=== PATIENT | male | born 1975 | race Caucasian/White ===

== ENCOUNTER 2022-08-18 09:39 | Emergency (ER) | payer BC ==
[2022-08-18] MEDS ORDERED: Sodium Chloride 0.9% 2.5 ML Syringe FLUSH PRN (09:55)
[2022-08-18] MEDS ORDERED: Sodium Chloride 0.9% 10 ML Syringe FLUSH PRN (09:55)
[2022-08-18 10:04] LABS: BASOPHILS PERCENT AUTO 0.4 % (0.0-1.5); EOSINOPHILS ABSOLUTE AUTO 0.1 K/uL (0.0-0.7); EOSINOPHILS PERCENT AUTO 1.7 % (0.0-7.0); HEMATOCRIT 41.8 % (38.0-50.0); HEMOGLOBIN 14.1 g/dL (13.0-17.0); LYMPHOCYTES ABSOLUTE AUTO 2.1 K/uL (0.6-2.4); LYMPHOCYTES PERCENT AUTO 38.2 % (16.0-40.0); MEAN CORPUSCULAR HEMOGLOBIN 29.4 pg (27.0-32.0); MEAN CORPUSCULAR HGB CONC 33.7 g/dL (31.0-37.0); MEAN CORPUSCULAR VOLUME 87.3 fL (80.0-98.0); MONOCYTES ABSOLUTE AUTO 0.4 K/uL (0.0-0.8); MONOCYTES PERCENT AUTO 7.2 % (0.0-15.0); NEUTROPHILS ABSOLUTE AUTO 2.9 K/uL (1.4-5.7); NEUTROPHILS PERCENT AUTO 52.5 % (48.0-80.0); NRBC ABSOLUTE 0 K/uL; PLATELET COUNT,PLT 250 K/uL (150-400); RED BLOOD CELL COUNT 4.79 M/uL (4.50-5.90); WHITE BLOOD CELL COUNT,WBC 5.44 K/uL (4.0-11.0)
[2022-08-18 10:23] LABS: ALBUMIN 3.9 g/dL (3.4-5.0); BILIRUBIN TOTAL 0.4 mg/dL (0.2-1.0); CALCIUM 8.6 mg/dL (8.5-10.1); CARBON DIOXIDE,CO2 24.1 mmol/L (21.0-32.0); CREATININE 1.1 mg/dL (0.8-1.3); EST CRCL DRUG DOSING (CG) 94.83 mL/min; POTASSIUM,K 3.5 mmol/L (3.5-5.1); PROTEIN TOTAL,TP 7.8 g/dL (6.4-8.2)
[2022-08-18] MEDS ORDERED: Aspirin 81 MG Tab.Chew PO ONE (13:35)
== END 2022-08-18 13:39 | disposition home or self-care (01) ==
LOC: MW.ED 09:39
DX: R07.89 Other chest pain (principal); I11.0 Hypertensive heart disease with heart failure; I50.30 Unspecified diastolic (congestive) heart failure; R53.81 Other malaise; Z79.82 Long term (current) use of aspirin; Z79.899 Other long term (current) drug therapy
CPT/HCPCS: 36415; 71045; 80053; 82947; 83605; 83690; 83880; 84484; 85025; 85379; 93005; 99285; J3490

== ENCOUNTER 2022-11-02 16:25 | Emergency (ER) | payer BC ==
[2022-11-02 17:05] LABS: BASOPHILS PERCENT AUTO 0.6 % (0.0-1.5); EOSINOPHILS ABSOLUTE AUTO 0.1 K/uL (0.0-0.7); EOSINOPHILS PERCENT AUTO 1.7 % (0.0-7.0); HEMATOCRIT 38.8 % (38.0-50.0); HEMOGLOBIN 13.1 g/dL (13.0-17.0); LYMPHOCYTES ABSOLUTE AUTO 1.4 K/uL (0.6-2.4); LYMPHOCYTES PERCENT AUTO 25.9 % (16.0-40.0); MEAN CORPUSCULAR HEMOGLOBIN 29.3 pg (27.0-32.0); MEAN CORPUSCULAR HGB CONC 33.8 g/dL (31.0-37.0); MEAN CORPUSCULAR VOLUME 86.8 fL (80.0-98.0); MONOCYTES ABSOLUTE AUTO 0.4 K/uL (0.0-0.8); MONOCYTES PERCENT AUTO 6.7 % (0.0-15.0); NEUTROPHILS ABSOLUTE AUTO 3.4 K/uL (1.4-5.7); NEUTROPHILS PERCENT AUTO 65.1 % (48.0-80.0); NRBC ABSOLUTE 0 K/uL; PLATELET COUNT,PLT 256 K/uL (150-400); RED BLOOD CELL COUNT 4.47 M/uL (4.50-5.90); WHITE BLOOD CELL COUNT,WBC 5.22 K/uL (4.0-11.0)
[2022-11-02 17:25] LABS: A/G RATIO 1.1 (0.9-1.6); ALBUMIN 3.9 g/dL (3.4-5.0); BILIRUBIN TOTAL 0.3 mg/dL (0.2-1.0); CALCIUM 8.4 mg/dL (8.5-10.1); CARBON DIOXIDE,CO2 23.3 mmol/L (21.0-32.0); CREATININE 1.1 mg/dL (0.8-1.3); EST CRCL DRUG DOSING (CG) 94.83 mL/min; POTASSIUM,K 3.6 mmol/L (3.5-5.1); PROTEIN TOTAL,TP 7.4 g/dL (6.4-8.2)
== END 2022-11-02 19:35 | disposition home or self-care (01) ==
LOC: MW.ED 16:25
DX: R07.89 Other chest pain (principal); I11.0 Hypertensive heart disease with heart failure; I50.9 Heart failure, unspecified; Z79.82 Long term (current) use of aspirin; Z79.899 Other long term (current) drug therapy
CPT/HCPCS: 36415; 71045; 71045-26; 80053; 83880; 84443; 84484; 85025; 85379; 93005; 93010; 99282; 99285

== ENCOUNTER 2022-11-29 15:07 | Emergency (ER) | payer BC ==
[2022-11-29 15:33] LABS: BASOPHILS PERCENT AUTO 0.7 % (0.0-1.5); EOSINOPHILS ABSOLUTE AUTO 0.1 K/uL (0.0-0.7); EOSINOPHILS PERCENT AUTO 2.5 % (0.0-7.0); HEMATOCRIT 41.2 % (38.0-50.0); HEMOGLOBIN 13.8 g/dL (13.0-17.0); LYMPHOCYTES ABSOLUTE AUTO 1.7 K/uL (0.6-2.4); LYMPHOCYTES PERCENT AUTO 39.1 % (16.0-40.0); MEAN CORPUSCULAR HEMOGLOBIN 29.2 pg (27.0-32.0); MEAN CORPUSCULAR HGB CONC 33.5 g/dL (31.0-37.0); MEAN CORPUSCULAR VOLUME 87.1 fL (80.0-98.0); MONOCYTES ABSOLUTE AUTO 0.3 K/uL (0.0-0.8); MONOCYTES PERCENT AUTO 6.9 % (0.0-15.0); NEUTROPHILS ABSOLUTE AUTO 2.2 K/uL (1.4-5.7); NEUTROPHILS PERCENT AUTO 50.8 % (48.0-80.0); NRBC ABSOLUTE 0 K/uL; PLATELET COUNT,PLT 242 K/uL (150-400); RED BLOOD CELL COUNT 4.73 M/uL (4.50-5.90); WHITE BLOOD CELL COUNT,WBC 4.32 K/uL (4.0-11.0)
[2022-11-29 15:52] LABS: ALBUMIN 3.8 g/dL (3.4-5.0); BILIRUBIN TOTAL 0.3 mg/dL (0.2-1.0); CALCIUM 7.9 mg/dL (8.5-10.1); CARBON DIOXIDE,CO2 26.2 mmol/L (21.0-32.0); CREATININE 1.1 mg/dL (0.8-1.3); EST CRCL DRUG DOSING (CG) 91.12 mL/min; POTASSIUM,K 3.4 mmol/L (3.5-5.1); PROTEIN TOTAL,TP 7.6 g/dL (6.4-8.2)
[2022-11-29] MEDS ORDERED: Sodium Chloride 0.9% 1,000 ML IV ONE (17:04)
[2022-11-29] MEDS ORDERED: Potassium Chloride 10% 20 MEQ/15 ML Soln 15 ML UD Cup PO ONE (17:43)
== END 2022-11-29 19:29 | disposition home or self-care (01) ==
LOC: MW.ED 15:07
DX: L55.9 Sunburn, unspecified (principal); I11.0 Hypertensive heart disease with heart failure; I50.9 Heart failure, unspecified; Z79.899 Other long term (current) drug therapy
CPT/HCPCS: 36415; 80053; 83735; 84484; 85025; 93005; 99284; A9270; J7030; 93010; 99283

== ENCOUNTER 2023-04-07 16:00 | Emergency (ER) | payer BC, OTHER ==
[2023-04-07 18:41] LABS: BILIRUBIN,URINE NEGATIVE (NEGATIVE); COLOR,URINE YELLOW; GLUCOSE,URINE NEGATIVE (NEGATIVE); KETONES,URINE NEGATIVE (NEGATIVE); LEUKOCYTE ESTERASE,URINE NEGATIVE (NEGATIVE); NITRITE,URINE POSITIVE (NEGATIVE); OCCULT BLOOD,URINE NEGATIVE (NEGATIVE); PROTEIN,URINE NEGATIVE (NEGATIVE); UROBILINOGEN,URINE 0.2 EU/dL (<2.0)
[2023-04-07 18:55] LABS: APPEARANCE,URINE SLT CLOUDY
[2023-04-07 19:18] LABS: BACTERIA,URINE 1+ (NEGATIVE); EPITHELIAL CELLS,URINE RARE (NONE-FEW); RBC,URINE 0-2 (0-2/HPF); WBC,URINE 0-1 (0-5/HPF)
== END 2023-04-07 19:10 | disposition home or self-care (01) ==
LOC: MW.ED 16:00
DX: N45.1 Epididymitis (principal); I11.0 Hypertensive heart disease with heart failure; I50.9 Heart failure, unspecified; Z79.82 Long term (current) use of aspirin; Z79.899 Other long term (current) drug therapy
CPT/HCPCS: 76870; 76870-26; 81001; 87086; 93976; 93976-26; 99283; 99284

== ENCOUNTER 2023-06-22 20:34 | Emergency (ER) | payer BC, OTHER ==
[2023-06-22] MEDS: Sodium Chloride 0.9% 1,000 ML IV ONE (21:44)
[2023-06-22] MEDS: Ketorolac 30 MG/ML SDV IVPUSH ONE (21:44)
[2023-06-22] MEDS: Ondansetron 4 MG/2 ML SDV IVPUSH ONE (21:44)
[2023-06-22 21:56] LABS: BASOPHILS ABSOLUTE AUTO 0.05 K/uL (0.00-0.20); BASOPHILS PERCENT AUTO 0.8 % (0.0-1.0); EOSINOPHILS ABSOLUTE AUTO 0.14 K/uL (0.00-0.45); EOSINOPHILS PERCENT AUTO 2.1 % (0.0-6.0); HEMATOCRIT 39.8 % (42.0-52.0); HEMOGLOBIN 13.5 g/dL (14.0-18.0); IMMATURE GRAN ABSOLUTE AUTO 0.01 K/uL (0.00-0.05); IMMATURE GRAN PERCENT AUTO 0.2 % (0.0-0.4); LYMPHOCYTES ABSOLUTE AUTO 2.28 K/uL (1.00-4.80); LYMPHOCYTES PERCENT AUTO 34.4 % (24.0-44.0); MEAN CORPUSCULAR HEMOGLOBIN 29.3 pg (28.0-32.0); MEAN CORPUSCULAR HGB CONC 33.9 g/dL (32.0-36.0); MEAN CORPUSCULAR VOLUME 86.5 fL (83.0-99.0); MEAN PLATELET VOLUME 9.9 fL (9.4-12.4); MONOCYTES ABSOLUTE AUTO 0.46 K/uL (0.00-0.80); MONOCYTES PERCENT AUTO 6.9 % (0.0-8.0); NEUTROPHILS ABSOLUTE AUTO 3.69 K/uL (1.80-7.70); NEUTROPHILS PERCENT AUTO 55.6 % (41.0-71.0); PLATELET COUNT,PLT 250 K/uL (150-400); WHITE BLOOD CELL COUNT,WBC 6.63 K/uL (3.9-11.3)
[2023-06-22 22:28] LABS: ALBUMIN 3.9 g/dL (3.4-5.0); BILIRUBIN TOTAL 0.4 mg/dL (0.2-1.0); CALCIUM 9.1 mg/dL (8.5-10.1); CARBON DIOXIDE,CO2 21.9 mmol/L (21.0-32.0); EST CRCL DRUG DOSING (CG) 103.2 mL/min; POTASSIUM,K 3.5 mmol/L (3.5-5.1); PROTEIN TOTAL,TP 7.7 g/dL (6.4-8.2)
== END 2023-06-22 23:01 | disposition home or self-care (01) ==
LOC: MW.ED 20:34
DX: R51.9 Headache, unspecified (principal); I11.0 Hypertensive heart disease with heart failure; I50.9 Heart failure, unspecified; Z75.8 Other problems related to medical facilities and other health care; Z79.82 Long term (current) use of aspirin; Z79.899 Other long term (current) drug therapy
CPT/HCPCS: 36415; 80053; 85025; 93005; 96361; 96374; 96375; 99284; J1885; J2405; J7030

== ENCOUNTER 2023-08-15 15:00 | Emergency (ER) | payer BC ==
[2023-08-15 15:17] LABS: BASOPHILS ABSOLUTE AUTO 0.03 K/uL (0.00-0.20); BASOPHILS PERCENT AUTO 0.6 % (0.0-1.0); EOSINOPHILS ABSOLUTE AUTO 0.05 K/uL (0.00-0.45); HEMATOCRIT 40.6 % (42.0-52.0); HEMOGLOBIN 13.8 g/dL (14.0-18.0); IMMATURE GRAN ABSOLUTE AUTO 0.01 K/uL (0.00-0.05); IMMATURE GRAN PERCENT AUTO 0.2 % (0.0-0.4); LYMPHOCYTES ABSOLUTE AUTO 1.25 K/uL (1.00-4.80); LYMPHOCYTES PERCENT AUTO 25.4 % (24.0-44.0); MEAN CORPUSCULAR VOLUME 88.3 fL (83.0-99.0); MEAN PLATELET VOLUME 9.9 fL (9.4-12.4); MONOCYTES ABSOLUTE AUTO 0.35 K/uL (0.00-0.80); MONOCYTES PERCENT AUTO 7.1 % (0.0-8.0); NEUTROPHILS ABSOLUTE AUTO 3.23 K/uL (1.80-7.70); NEUTROPHILS PERCENT AUTO 65.7 % (41.0-71.0); PLATELET COUNT,PLT 280 K/uL (150-400); WHITE BLOOD CELL COUNT,WBC 4.92 K/uL (3.9-11.3)
[2023-08-15] MEDS: diphenhydrAMINE 50 MG/ML SDV IVPUSH ONE (15:18)
[2023-08-15] MEDS: Sodium Chloride 0.9% 1,000 ML IV ONE (15:18)
[2023-08-15] MEDS: Famotidine 20 MG/2 ML SDV IVPUSH ONE (15:18)
[2023-08-15 15:45] LABS: A/G RATIO 0.9 (0.9-1.6); ALANINE AMINOTRANSFERASE,ALT 35 IU/L (14-63); ALBUMIN 3.6 g/dL (3.4-5.0); ALKALINE PHOSPHATASE 90 U/L (46-116); ASPARTATE AMNIOTRANSFERASE,AST 17 IU/L (15-37); BILIRUBIN TOTAL 0.3 mg/dL (0.2-1.0); BLOOD UREA NITROGEN,BUN 7 mg/dL (7.0-18.0); CALCIUM 8.5 mg/dL (8.5-10.1); CARBON DIOXIDE,CO2 27.7 mmol/L (21.0-32.0); CHLORIDE,CL 107 mmol/L (98-107); GLUCOSE RANDOM 86 mg/dL (74-106); INR 1.02 (0.86-1.11); LIPASE 62 U/L (16-77); PROTEIN TOTAL,TP 7.6 g/dL (6.4-8.2); SODIUM,NA 142 mmol/L (136-148)
[2023-08-15 15:48] LABS: ESTIMATED GFR 93 mL/min (>60)
== END 2023-08-15 18:28 | disposition home or self-care (01) ==
LOC: MW.ED 15:00
DX: T59.4X1A Toxic effect of chlorine gas, accidental (unintentional), initial encounter (principal); I11.0 Hypertensive heart disease with heart failure; I50.9 Heart failure, unspecified; Z79.02 Long term (current) use of antithrombotics/antiplatelets; Z79.899 Other long term (current) drug therapy; Z75.8 Other problems related to medical facilities and other health care
CPT/HCPCS: 36415; 71045; 80053; 82947; 83690; 84484; 85025; 85610; 85730; 93005; 96361; 96374; 96375; 99284; J1200; J3490; J7030; 93010

== ENCOUNTER 2023-11-02 14:58 | Emergency (ER) | payer BC, OTHER ==
[2023-11-02 16:04] LABS: BASOPHILS ABSOLUTE AUTO 0.04 K/uL (0.00-0.20); BASOPHILS PERCENT AUTO 0.8 % (0.0-1.0); EOSINOPHILS ABSOLUTE AUTO 0.13 K/uL (0.00-0.45); EOSINOPHILS PERCENT AUTO 2.5 % (0.0-6.0); HEMATOCRIT 38.7 % (42.0-52.0); HEMOGLOBIN 13.6 g/dL (14.0-18.0); IMMATURE GRAN ABSOLUTE AUTO 0.02 K/uL (0.00-0.05); IMMATURE GRAN PERCENT AUTO 0.4 % (0.0-0.4); LYMPHOCYTES ABSOLUTE AUTO 1.74 K/uL (1.00-4.80); LYMPHOCYTES PERCENT AUTO 33.7 % (24.0-44.0); MEAN CORPUSCULAR HGB CONC 35.1 g/dL (32.0-36.0); MEAN CORPUSCULAR VOLUME 85.2 fL (83.0-99.0); MEAN PLATELET VOLUME 9.6 fL (9.4-12.4); MONOCYTES ABSOLUTE AUTO 0.27 K/uL (0.00-0.80); MONOCYTES PERCENT AUTO 5.2 % (0.0-8.0); NEUTROPHILS ABSOLUTE AUTO 2.97 K/uL (1.80-7.70); NEUTROPHILS PERCENT AUTO 57.4 % (41.0-71.0); PLATELET COUNT,PLT 254 K/uL (150-400); RED BLOOD CELL COUNT 4.54 M/uL (4.52-5.90); WHITE BLOOD CELL COUNT,WBC 5.17 K/uL (3.9-11.3)
[2023-11-02 16:59] LABS: A/G RATIO 1.1 (0.9-1.6); ALANINE AMINOTRANSFERASE,ALT 31 IU/L (14-63); ALBUMIN 4.1 g/dL (3.4-5.0); ALKALINE PHOSPHATASE 86 U/L (46-116); ASPARTATE AMNIOTRANSFERASE,AST 17 IU/L (15-37); BILIRUBIN TOTAL 0.5 mg/dL (0.2-1.0); BLOOD UREA NITROGEN,BUN 13 mg/dL (7.0-18.0); CALCIUM 8.9 mg/dL (8.5-10.1); CARBON DIOXIDE,CO2 26.3 mmol/L (21.0-32.0); CHLORIDE,CL 102 mmol/L (98-107); CREATININE 0.9 mg/dL (0.8-1.3); EST CRCL DRUG DOSING (CG) 114.67 mL/min; GLUCOSE RANDOM 90 mg/dL (74-106); LIPASE 50 U/L (16-77); POTASSIUM,K 3.6 mmol/L (3.5-5.1); SODIUM,NA 138 mmol/L (136-148)
[2023-11-02 17:06] LABS: ESTIMATED GFR 106 mL/min (>60)
== END 2023-11-02 17:33 | disposition home or self-care (01) ==
LOC: MW.ED 14:58
DX: R11.0 Nausea (principal); I11.0 Hypertensive heart disease with heart failure; I50.9 Heart failure, unspecified; Z79.82 Long term (current) use of aspirin; Z79.899 Other long term (current) drug therapy; Z75.8 Other problems related to medical facilities and other health care
CPT/HCPCS: 36415; 80053; 83690; 84484; 85025; 99284

== ENCOUNTER 2023-11-25 02:50 | Observation (INO) | payer BC, OTHER ==
[2023-11-25] MEDS ORDERED: Sodium Chloride 0.9% 2.5 ML Syringe FLUSH PRN (03:19)
[2023-11-25] MEDS ORDERED: Sodium Chloride 0.9% 10 ML Syringe FLUSH PRN (03:19)
[2023-11-25 03:26] LABS: BASOPHILS ABSOLUTE AUTO 0.05 K/uL (0.00-0.20); EOSINOPHILS ABSOLUTE AUTO 0.11 K/uL (0.00-0.45); EOSINOPHILS PERCENT AUTO 2.3 % (0.0-6.0); HEMATOCRIT 41.2 % (42.0-52.0); HEMOGLOBIN 13.9 g/dL (14.0-18.0); IMMATURE GRAN ABSOLUTE AUTO 0.01 K/uL (0.00-0.05); IMMATURE GRAN PERCENT AUTO 0.2 % (0.0-0.4); LYMPHOCYTES ABSOLUTE AUTO 1.83 K/uL (1.00-4.80); LYMPHOCYTES PERCENT AUTO 37.7 % (24.0-44.0); MEAN CORPUSCULAR HEMOGLOBIN 29.1 pg (28.0-32.0); MEAN CORPUSCULAR HGB CONC 33.7 g/dL (32.0-36.0); MEAN CORPUSCULAR VOLUME 86.2 fL (83.0-99.0); MEAN PLATELET VOLUME 9.8 fL (9.4-12.4); MONOCYTES ABSOLUTE AUTO 0.26 K/uL (0.00-0.80); MONOCYTES PERCENT AUTO 5.3 % (0.0-8.0); NEUTROPHILS PERCENT AUTO 53.5 % (41.0-71.0); PLATELET COUNT,PLT 266 K/uL (150-400); RED BLOOD CELL COUNT 4.78 M/uL (4.52-5.90); WHITE BLOOD CELL COUNT,WBC 4.86 K/uL (3.9-11.3)
[2023-11-25 03:43] LABS: A/G RATIO 1.1 (0.9-1.6); BILIRUBIN TOTAL 0.4 mg/dL (0.2-1.0); CALCIUM 8.8 mg/dL (8.5-10.1); CARBON DIOXIDE,CO2 23.8 mmol/L (21.0-32.0); CREATININE 0.8 mg/dL (0.8-1.3); EST CRCL DRUG DOSING (CG) 127.62 mL/min; MAGNESIUM 2.1 mg/dL (1.8-2.4); PROTEIN TOTAL,TP 7.8 g/dL (6.4-8.2)
[2023-11-25] MEDS: Acetaminophen 325 MG Tab PO PRN (06:05)
[2023-11-25] MEDS: Ibuprofen 400 MG Tab PO ONE (09:35)
[2023-11-26 06:59] LABS: BASOPHILS ABSOLUTE AUTO 0.04 K/uL (0.00-0.20); BASOPHILS PERCENT AUTO 0.8 % (0.0-1.0); EOSINOPHILS ABSOLUTE AUTO 0.13 K/uL (0.00-0.45); EOSINOPHILS PERCENT AUTO 2.7 % (0.0-6.0); HEMATOCRIT 36.8 % (42.0-52.0); HEMOGLOBIN 12.4 g/dL (14.0-18.0); IMMATURE GRAN ABSOLUTE AUTO 0.01 K/uL (0.00-0.05); IMMATURE GRAN PERCENT AUTO 0.2 % (0.0-0.4); LYMPHOCYTES PERCENT AUTO 37.7 % (24.0-44.0); MEAN CORPUSCULAR HEMOGLOBIN 29.6 pg (28.0-32.0); MEAN CORPUSCULAR HGB CONC 33.7 g/dL (32.0-36.0); MEAN CORPUSCULAR VOLUME 87.8 fL (83.0-99.0); MEAN PLATELET VOLUME 9.9 fL (9.4-12.4); MONOCYTES ABSOLUTE AUTO 0.32 K/uL (0.00-0.80); MONOCYTES PERCENT AUTO 6.7 % (0.0-8.0); NEUTROPHILS ABSOLUTE AUTO 2.48 K/uL (1.80-7.70); NEUTROPHILS PERCENT AUTO 51.9 % (41.0-71.0); PLATELET COUNT,PLT 211 K/uL (150-400); RED BLOOD CELL COUNT 4.19 M/uL (4.52-5.90); WHITE BLOOD CELL COUNT,WBC 4.78 K/uL (3.9-11.3)
[2023-11-26 07:20] LABS: ALBUMIN 3.3 g/dL (3.4-5.0); BILIRUBIN TOTAL 0.4 mg/dL (0.2-1.0); CALCIUM 8.3 mg/dL (8.5-10.1); CREATININE 1.1 mg/dL (0.8-1.3); EST CRCL DRUG DOSING (CG) 95.48 mL/min; POTASSIUM,K 3.7 mmol/L (3.5-5.1); PROTEIN TOTAL,TP 6.7 g/dL (6.4-8.2)
[2023-11-26] MEDS: amLODIPine 5 MG Tab PO SCH (09:03)
[2023-11-26] MEDS: Losartan 50 MG Tab PO SCH (09:04)
[2023-11-26] MEDS: Carvedilol 6.25 MG Tab PO SCH (09:05)
== END 2023-11-26 16:15 | disposition home or self-care (01) ==
LOC: MW.ED 02:50 → MW.MS 04:47
PROVIDERS: ADMIT Family Medicine; ATTEND Family Medicine
DX: R55 Syncope and collapse (principal); I11.0 Hypertensive heart disease with heart failure; I50.9 Heart failure, unspecified; F41.9 Anxiety disorder, unspecified; Z79.82 Long term (current) use of aspirin; Z79.899 Other long term (current) drug therapy
CPT/HCPCS: 36415; 70450; 71046; 80053; 80307; 83735; 84484; 85025; 93005; 93306; 93880; 99285; A9270; G0378

== ENCOUNTER 2023-12-03 21:45 | Emergency (ER) | payer BC, OTHER | END 2023-12-03 22:23 | disposition home or self-care (01) | LOC: MW.ED 21:45 | DX: R23.3 Spontaneous ecchymoses (principal); I10 Essential (primary) hypertension; Z79.899 Other long term (current) drug therapy; Z79.82 Long term (current) use of aspirin | CPT/HCPCS: 99282 ==

== ENCOUNTER 2024-04-28 15:36 | Emergency (ER) | payer BC, OTHER ==
[2024-04-28 17:33] LABS: BASOPHILS ABSOLUTE AUTO 0.03 K/uL (0.00-0.20); BASOPHILS PERCENT AUTO 0.5 % (0.0-1.0); EOSINOPHILS ABSOLUTE AUTO 0.18 K/uL (0.00-0.45); EOSINOPHILS PERCENT AUTO 2.7 % (0.0-6.0); HEMATOCRIT 36.5 % (42.0-52.0); HEMOGLOBIN 12.6 g/dL (14.0-18.0); IMMATURE GRAN ABSOLUTE AUTO 0.01 K/uL (0.00-0.05); IMMATURE GRAN PERCENT AUTO 0.2 % (0.0-0.4); LYMPHOCYTES PERCENT AUTO 22.6 % (24.0-44.0); MEAN CORPUSCULAR HEMOGLOBIN 29.6 pg (28.0-32.0); MEAN CORPUSCULAR HGB CONC 34.5 g/dL (32.0-36.0); MEAN CORPUSCULAR VOLUME 85.9 fL (83.0-99.0); MEAN PLATELET VOLUME 10.1 fL (9.4-12.4); MONOCYTES ABSOLUTE AUTO 0.49 K/uL (0.00-0.80); MONOCYTES PERCENT AUTO 7.4 % (0.0-8.0); NEUTROPHILS ABSOLUTE AUTO 4.42 K/uL (1.80-7.70); NEUTROPHILS PERCENT AUTO 66.6 % (41.0-71.0); PLATELET COUNT,PLT 230 K/uL (150-400); RED BLOOD CELL COUNT 4.25 M/uL (4.52-5.90); WHITE BLOOD CELL COUNT,WBC 6.63 K/uL (3.9-11.3)
[2024-04-28 18:11] LABS: A/G RATIO 1.1 (0.9-1.6); BILIRUBIN TOTAL 0.5 mg/dL (0.2-1.0); CALCIUM 8.7 mg/dL (8.5-10.1); CARBON DIOXIDE,CO2 23.5 mmol/L (21.0-32.0); EST CRCL DRUG DOSING (CG) 102.09 mL/min; POTASSIUM,K 4.2 mmol/L (3.5-5.1); PROTEIN TOTAL,TP 7.6 g/dL (6.4-8.2)
== END 2024-04-28 18:44 | disposition left against medical advice (07) ==
LOC: MW.ED 15:36
DX: Z53.21 Procedure and treatment not carried out due to patient leaving prior to being seen by health care provider (principal)
CPT/HCPCS: 36415; 71045; 71045-26; 80053; 84484; 85025; 93005

== ENCOUNTER 2024-09-26 11:40 | Emergency (ER) | payer BC, OTHER ==
[2024-09-26] MEDS ORDERED: Sodium Chloride 0.9% 2.5 ML Syringe FLUSH PRN (11:52)
[2024-09-26] MEDS ORDERED: Sodium Chloride 0.9% 10 ML Syringe FLUSH PRN (11:52)
[2024-09-26 12:02] LABS: BASOPHILS ABSOLUTE AUTO 0.05 K/uL (0.00-0.20); BASOPHILS PERCENT AUTO 0.9 % (0.0-1.0); EOSINOPHILS ABSOLUTE AUTO 0.13 K/uL (0.00-0.45); EOSINOPHILS PERCENT AUTO 2.3 % (0.0-6.0); IMMATURE GRAN ABSOLUTE AUTO 0.01 K/uL (0.00-0.05); IMMATURE GRAN PERCENT AUTO 0.2 % (0.0-0.4); LYMPHOCYTES ABSOLUTE AUTO 1.81 K/uL (1.00-4.80); LYMPHOCYTES PERCENT AUTO 32.3 % (24.0-44.0); MEAN PLATELET VOLUME 10.1 fL (9.4-12.4); MONOCYTES ABSOLUTE AUTO 0.37 K/uL (0.00-0.80); MONOCYTES PERCENT AUTO 6.6 % (0.0-8.0); NEUTROPHILS ABSOLUTE AUTO 3.24 K/uL (1.80-7.70); NEUTROPHILS PERCENT AUTO 57.7 % (41.0-71.0); NRBC ABSOLUTE 0.00 K/uL (0.00-0.02); NRBC PERCENT 0.0 /100WBC (0.0-0.2); PLATELET COUNT,PLT 269 K/uL (150-400); RED BLOOD CELL COUNT 4.46 M/uL (4.52-5.90); WHITE BLOOD CELL COUNT,WBC 5.61 K/uL (3.9-11.3)
[2024-09-26 12:29] LABS: A/G RATIO 1.1 (0.9-1.6); ALANINE AMINOTRANSFERASE,ALT 48.0 IU/L (14-63); ASPARTATE AMNIOTRANSFERASE,AST 20.0 IU/L (15-37); BILIRUBIN TOTAL 0.6 mg/dL (0.2-1.0); BLOOD UREA NITROGEN,BUN 13.0 mg/dL (7.0-18.0); CARBON DIOXIDE,CO2 27.0 mmol/L (21.0-32.0); CHLORIDE,CL 102.0 mmol/L (98-107); CREATININE 1.2 mg/dL (0.8-1.3); EST CRCL DRUG DOSING (CG) 85.08 mL/min; GLUCOSE RANDOM 100.0 mg/dL (74-106); POTASSIUM,K 4.6 mmol/L (3.5-5.1); PROTEIN TOTAL,TP 8.1 g/dL (6.4-8.2); SODIUM,NA 137.0 mmol/L (136-148)
[2024-09-26 12:35] LABS: ESTIMATED GFR 75.0 mL/min (>60)
== END 2024-09-26 15:03 | disposition home or self-care (01) ==
LOC: MW.ED 11:40
DX: R42 Dizziness and giddiness (principal); I10 Essential (primary) hypertension; Z79.82 Long term (current) use of aspirin; Z79.899 Other long term (current) drug therapy
CPT/HCPCS: 36415; 71046; 80053; 83880; 84484; 85025; 85379; 93005; 96360; 99284; J7040; 93010; 99283

== ENCOUNTER 2024-11-16 16:46 | Emergency (ER) | payer BC, OTHER ==
[2024-11-16 18:03] LABS: BASOPHILS ABSOLUTE AUTO 0.04 K/uL (0.00-0.20); BASOPHILS PERCENT AUTO 0.8 % (0.0-1.0); EOSINOPHILS ABSOLUTE AUTO 0.14 K/uL (0.00-0.45); EOSINOPHILS PERCENT AUTO 2.9 % (0.0-6.0); IMMATURE GRAN ABSOLUTE AUTO 0.01 K/uL (0.00-0.05); IMMATURE GRAN PERCENT AUTO 0.2 % (0.0-0.4); LYMPHOCYTES ABSOLUTE AUTO 1.60 K/uL (1.00-4.80); LYMPHOCYTES PERCENT AUTO 32.9 % (24.0-44.0); MEAN PLATELET VOLUME 10.0 fL (9.4-12.4); MONOCYTES ABSOLUTE AUTO 0.30 K/uL (0.00-0.80); MONOCYTES PERCENT AUTO 6.2 % (0.0-8.0); NEUTROPHILS ABSOLUTE AUTO 2.77 K/uL (1.80-7.70); NEUTROPHILS PERCENT AUTO 57.0 % (41.0-71.0); NRBC ABSOLUTE 0.00 K/uL (0.00-0.02); NRBC PERCENT 0.0 /100WBC (0.0-0.2); PLATELET COUNT,PLT 243 K/uL (150-400); RED BLOOD CELL COUNT 4.58 M/uL (4.52-5.90); WHITE BLOOD CELL COUNT,WBC 4.86 K/uL (3.9-11.3)
[2024-11-16 18:38] LABS: A/G RATIO 1.0 (0.9-1.6); ALANINE AMINOTRANSFERASE,ALT 39.0 IU/L (14-63); ASPARTATE AMNIOTRANSFERASE,AST 19.0 IU/L (15-37); BILIRUBIN TOTAL 0.4 mg/dL (0.2-1.0); BLOOD UREA NITROGEN,BUN 16.0 mg/dL (7.0-18.0); CARBON DIOXIDE,CO2 25.6 mmol/L (21.0-32.0); CHLORIDE,CL 103.0 mmol/L (98-107); CREATININE 1.2 mg/dL (0.8-1.3); EST CRCL DRUG DOSING (CG) 85.08 mL/min; GLUCOSE RANDOM 91.0 mg/dL (74-106); POTASSIUM,K 3.9 mmol/L (3.5-5.1); PRO B-TYPE NATRIUR PEPT,BNPPRO 82.0 pg/mL (0-125); PROTEIN TOTAL,TP 7.7 g/dL (6.4-8.2); SODIUM,NA 138.0 mmol/L (136-148)
[2024-11-16 18:43] LABS: ESTIMATED GFR 75.0 mL/min (>60)
== END 2024-11-16 19:16 | disposition home or self-care (01) ==
LOC: MW.ED 16:46
DX: I11.0 Hypertensive heart disease with heart failure (principal); I50.9 Heart failure, unspecified; Z79.899 Other long term (current) drug therapy
CPT/HCPCS: 36415; 71045; 71045-26; 80053; 83735; 83880; 84484; 85025; 93005; 99284

== ENCOUNTER 2025-01-05 21:39 | Emergency (ER) | payer BC ==
[2025-01-05 22:22] LABS: BASOPHILS ABSOLUTE AUTO 0.06 K/uL (0.00-0.20); BASOPHILS PERCENT AUTO 1.1 % (0.0-1.0); EOSINOPHILS ABSOLUTE AUTO 0.23 K/uL (0.00-0.45); EOSINOPHILS PERCENT AUTO 4.1 % (0.0-6.0); IMMATURE GRAN ABSOLUTE AUTO 0.01 K/uL (0.00-0.05); IMMATURE GRAN PERCENT AUTO 0.2 % (0.0-0.4); LYMPHOCYTES ABSOLUTE AUTO 1.81 K/uL (1.00-4.80); LYMPHOCYTES PERCENT AUTO 32.1 % (24.0-44.0); MEAN PLATELET VOLUME 9.7 fL (9.4-12.4); MONOCYTES ABSOLUTE AUTO 0.49 K/uL (0.00-0.80); MONOCYTES PERCENT AUTO 8.7 % (0.0-8.0); NEUTROPHILS ABSOLUTE AUTO 3.03 K/uL (1.80-7.70); NEUTROPHILS PERCENT AUTO 53.8 % (41.0-71.0); NRBC ABSOLUTE 0.00 K/uL (0.00-0.02); NRBC PERCENT 0.0 /100WBC (0.0-0.2); PLATELET COUNT,PLT 263 K/uL (150-400); RED BLOOD CELL COUNT 4.45 M/uL (4.52-5.90); WHITE BLOOD CELL COUNT,WBC 5.63 K/uL (3.9-11.3)
[2025-01-05 22:51] LABS: BLOOD UREA NITROGEN,BUN 12.0 mg/dL (7.0-18.0); CARBON DIOXIDE,CO2 25.8 mmol/L (21.0-32.0); CHLORIDE,CL 104.0 mmol/L (98-107); CREATININE 1.1 mg/dL (0.8-1.3); EST CRCL DRUG DOSING (CG) 91.8 mL/min; GLUCOSE RANDOM 89.0 mg/dL (74-106); POTASSIUM,K 3.9 mmol/L (3.5-5.1); PRO B-TYPE NATRIUR PEPT,BNPPRO 31.0 pg/mL (0-125); SODIUM,NA 139.0 mmol/L (136-148)
[2025-01-05 22:53] LABS: ESTIMATED GFR 82.0 mL/min (>60)
== END 2025-01-05 23:28 | disposition home or self-care (01) ==
LOC: MW.ED 21:39
DX: I49.3 Ventricular premature depolarization (principal); B34.9 Viral infection, unspecified; I11.0 Hypertensive heart disease with heart failure; I50.9 Heart failure, unspecified; Z79.82 Long term (current) use of aspirin; Z79.899 Other long term (current) drug therapy; F17.200 Nicotine dependence, unspecified, uncomplicated
CPT/HCPCS: 36415; 71045; 71045-26; 80048; 83880; 84484; 85025; 87428-QW; 93005; 99284